=== PATIENT | female | born 1950 | race Two or more races ===

== ENCOUNTER 2018-11-05 20:41 | Emergency (ER) | payer OTHER ==
[~2018-11-05] VITALS: Ht 162.6 cm; Wt 58.5 kg
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
[2018-11-05] MEDS ORDERED: IBUPROFEN 400 MG TABLET ONE (23:50)
[2018-11-05] MEDS: IBUPROFEN 400 MG TABLET PO ONE (23:53)
--- NOTE | 2018-11-06 01:48 | NUR ---
Patient is resting comfortably in bed with FAMILY AT BEDSIDE. Easily aroused. VSS.
[2018-11-06 01:50] VITALS: BP 137/91
--- NOTE | 2018-11-06 01:54 | NUR ---
Patient discharged to home in stable condition. Written and verbal after care instructions given. Patient verbalizes understanding of instruction. PT AMBULATORY WITH STEADY GAIT. ACCOMPANIED BY FAMILY.
== END 2018-11-06 01:56 | disposition home or self-care (01) ==
LOC: ER 20:51
DX: S16.1XXA Strain of muscle, fascia and tendon at neck level, initial encounter (principal); S46.811A Strain of other muscles, fascia and tendons at shoulder and upper arm level, right arm, initial encounter; M50.30 Other cervical disc degeneration, unspecified cervical region; Z91.041 Radiographic dye allergy status; V49.59XA Passenger injured in collision with other motor vehicles in traffic accident, initial encounter; Y93.89 Activity, other specified; Y92.413 State road as the place of occurrence of the external cause; Y99.8 Other external cause status
CPT/HCPCS: 72125-TC; 73030-TC

== ENCOUNTER 2019-07-08 10:12 | Emergency (ER) | payer OTHER ==
[~2019-07-08] VITALS: Ht 162.6 cm; Wt 68.0 kg
[2019-07-08 10:16] VITALS: BP 155/96
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
--- NOTE | 2019-07-08 11:44 | NUR ---
PER DEO DEL CID COMING TO ER FOR CONSULT
[2019-07-08] MEDS ORDERED: LIDOCAINE HCL/PF 1% 30 ML SDV ONE (12:11)
[2019-07-08] MEDS ORDERED: oxyCODONE/APAP (5/325 MG) 1 UDTAB TABLET ONE (12:51)
[2019-07-08] MEDS ORDERED: oxyCODONE/APAP (5/325 MG) 1 UDTAB TABLET PO ONE (13:00)
== END 2019-07-08 14:25 | disposition home or self-care (01) ==
LOC: ER 10:12
DX: S52.571A Other intraarticular fracture of lower end of right radius, initial encounter for closed fracture (principal); S52.611A Displaced fracture of right ulna styloid process, initial encounter for closed fracture; Z91.048 Other nonmedicinal substance allergy status; W01.0XXA Fall on same level from slipping, tripping and stumbling without subsequent striking against object, initial encounter; Y93.89 Activity, other specified; Y92.512 Supermarket, store or market as the place of occurrence of the external cause; Y99.8 Other external cause status
CPT/HCPCS: 29125; 73110; 99283; J3490